=== PATIENT | male | born 1955 | race Caucasian/White ===

== ENCOUNTER 2022-01-29 00:32 | Outpatient (CLI) | payer MEDICARE, OTHER, SELFPAY ==
--- NOTE | 2022-01-29 08:45 | DI.US_ITS ---
Exam(s) US NEEDLE LOCAL OTHER WO RAD EXAM: US NEEDLE LOCAL OTHER WO RAD CLINICAL HISTORY: right thyroid nodule,E04.1,ULTRASOUND GUIDED BIOPSY. COMPARISON: No exams were available for comparison TECHNIQUE: Ultrasound was provided for Dr. Malone for guidance with performing right thyroid nodule FNA. FINDINGS: Images show a solid heterogeneous mass measuring 5.2 x 4 x 5 cm. Images show needle placement within the lesion. Please see procedure new for details. DATA REPOSITORY:
--- NOTE | 2022-01-29 14:15 | PAPNONF_PTH ---
PATIENT: Miky Forbes LOC: [facility] U#:[id number] AGE/SX: 66/M ROOM: RE01/29/[address]: Akira Malone MD : [id number] BED: DIS: 01/29/2022 SPEC #: [id number] RECD: 01/29/22 18:00 STATUS: VALERIA REGlynn #: [id number] TAMARA: 01/29/22 14:[address]: Akira Malone DEPT: [facility] Cytology RECD BY: Bethany Fajardo ENTERED: 01/29/22 18:01 SP TYPE: JURGEN PIERRE DR: Yuli Dalton Tissues: 1 - BODY FLUID CYTO-FINE NEEDLE [facility] Procedures: BODY FLUID CYTO-FINE NEEDLE [facility]IR[facility] Comments: [id number]
--- NOTE | 2022-01-29 14:59 | OPPNE_ITS ---
Procedure Note Date of procedure: 01/29/22 Procedure: Ultrasound-guided FNA, right thyroid nodule Procedure Diagnosis: Right thyroid nodule Procedure Indications: Patient with a large right-sided thyroid nodule, largely replacing his thyroid lobe. Options were explained to the patient regarding further management. He elected to undergo the above procedure. Consent was filled out and signed prior to the procedure. Procedure Description: After obtaining written consent, the patient was positioned in the supine position with his head extended. Ultrasound was used to localize the thyroid nodule on the right as well as to confirm that the left thyroid nodule did not have any nodules of concern. The patient was then prepped and draped in appropriate fashion and 1% lidocaine with 1/100,000 epinephrine was injected into the skin and subcutaneous tissues overlying the right-sided thyroid nodule. A 25-gauge needle was then passed repeatedly into the nodule, approaching the nodule in different portions of the nodule, with no obvious cellularity found by pathology. As such, after discussion with the patient, air prep slides as well as CytoLyt specimen were prepared. A sterile dressing was applied after ensuring adequate hemostasis and the patient was allowed to sit and then stand, with no alteration in his vitals and he was able to ambulate without difficulty. He is aware he should remove the bandage tonight and not replace it. He will use ibuprofen or Tylenol for discomfort. He will call if he does not hear from me with regard to pathology within 1 week. If the specimens are nondiagnostic or if the diagnosis warrants I will probably refer him to [facility] to Dr. Aguilar for consideration of thyroid lobectomy given the size of the nodule. We will cross this bridge when we get there. He had no further questions. He is comfortable with the plan.
== END 2022-01-29 00:52 ==
PROVIDERS: PCP Nurse Practitioner Family; Visit Provider Otolaryngology
DX: E04.1 Nontoxic single thyroid nodule (principal)
CPT/HCPCS: 76942; 88104

== ENCOUNTER 2023-02-28 02:58 | Outpatient (CLI) | payer MEDICARE, OTHER, SELFPAY ==
--- NOTE | 2023-02-28 06:44 | DI.US_ITS ---
Exam(s) US THYROID EXAM: US THYROID CLINICAL HISTORY: Assess stability of THYROID nodule,H/O THYROID CA AND LOBECTOMY,E04.1,Z85.8. TECHNIQUE: Ultrasound thyroid performed using standard protocol. COMPARISON: US US THYROID/NECK/HEAD from 01/02/2022 US US NEEDLE LOCAL OTHER WO RAD from 01/29/2022 FINDINGS: RIGHT THYROID LOBE: The right thyroid lobe is surgically absent. There are no masses in the right thyroid bed. The remaining isthmus appears unremarkable. LEFT THYROID LOBE: Measures 1.9 cm AP x 2.1 wide x 5.1 cm craniocaudal There is a subtle nodule in the left lobe characteristics as described below. Nodule Size: Measures 1.1 x 1.0 x 1.1 cm Composition: Solid-2 points Echogenicity: Isoechoic-1 points Shape: Not taller than wider in the transverse plane-0 points Margin: Smooth-0 points Echogenic Foci: None-0 points Total points for this nodule: 3 ACR Ti-Rads Category: 3 This TR3 nodule does not require biopsy as it measures less than 2.5 cm. There is another finding in the left lobe which has the appearance of benign cyst measuring 7 x 8 x 3 mm. LYMPH NODES: There is no significant adenopathy. IMPRESSION: 1. Right thyroid lobe is surgically absent. No mass nor adenopathy evident on the right side 2. There is a TR3 nodule in the left lobe as described above. This can be followed conservatively. Recommend repeat ultrasound in 1 year. 3. There is no significant lymphadenopathy. DATA REPOSITORY:
== END 2023-02-28 03:18 ==
LOC: DI 02:59
PROVIDERS: PCP Nurse Practitioner Family; Visit Provider Otolaryngology
DX: E04.1 Nontoxic single thyroid nodule (principal); Z85.850 Personal history of malignant neoplasm of thyroid; Z90.2 Acquired absence of lung [part of]
CPT/HCPCS: 76536

== ENCOUNTER → 2024-02-27 01:20 | Outpatient (CLI) | payer MEDICARE, OTHER, SELFPAY ==
--- NOTE | 2024-02-27 06:45 | DI.US_ITS ---
Exam(s) US THYROID EXAM: US THYROID CLINICAL HISTORY: Assess stability of remaining lobe and nodule, hx thyroid cancer, Z85.647. TECHNIQUE: Ultrasound thyroid performed using standard protocol. COMPARISON: US US THYROID from 02/28/2023 FINDINGS: ISTHMUS: 3 mm RIGHT LOBE: The patient is status post right lobectomy. LEFT LOBE: Size: 5.2 x 1.8 x 2.1 cm Echogenicity: Normal. Vascularity: Normal. Nodules: There is a 1.0 x 1.0 x 1.1 cm solid isoechoic nodule in the inferior pole. This is consiste nt with a TI rads level 3 nodule. Based on its size, no follow-up is recommended. This is unchanged in size compared to the prior examination. There is a 1.0 x 0.4 x 0.9 cm solid hypoechoic nodule wi th punctate echogenic foci. This was not present on the prior examination. This is consistent with a TI rads level 5 nodule. Due to its size, FNA is recommended. OTHER FINDINGS: None. IMPRESSION: New solid 1 cm hypoechoic nodule with punctate echogenic foci. Due to its size, FNA is recommended. DATA REPOSITORY:
== END ==
PROVIDERS: PCP Nurse Practitioner Family; Visit Provider Otolaryngology
DX: Z85.850 Personal history of malignant neoplasm of thyroid (principal); E04.1 Nontoxic single thyroid nodule
CPT/HCPCS: 76536

== ENCOUNTER 2024-08-28 00:10 | Outpatient (CLI) | payer MEDICARE, OTHER, SELFPAY ==
--- NOTE | 2024-08-28 07:59 | DI.US_ITS ---
Exam(s) US THYROID EXAM: US THYROID CLINICAL HISTORY: Assess for change Z85.850 HX THYROID CA E04.1 THYROID NODULE. TECHNIQUE: Ultrasound thyroid performed using standard protocol. COMPARISON: US US THYROID from 02/27/2024 FINDINGS: ISTHMUS: 2 mm RIGHT LOBE: The patient is status post right lobectomy. LEFT LOBE: Size: 6.2 x 2.6 x 2.6 cm Echogenicity: Normal. Vascularity: Normal. Nodules: There is a 1.1 x 0.7 x 1.2 cm mixed isoechoic nodule in the medial aspect of the left lobe. It is consistent with a TI rads level 2 nodule. No follow-up is recommended. There is a 1.0 x 0.6 x 0.9 cm mixed isoechoic nodule in the lateral aspect consistent with a TI rads level 2 nodule. No f ollow-up is recommended. There is a 1.0 x 1.1 x 1.0 cm solid hypoechoic nodule present. It is consi stent with a TI rads level 4 nodule. Due to its size, follow-up is recommended. OTHER FINDINGS: None. IMPRESSION: Stable left thyroid nodules. DATA REPOSITORY:
== END 2024-08-28 00:30 ==
LOC: DI 00:11
PROVIDERS: PCP Nurse Practitioner Family; Visit Provider Otolaryngology
DX: E04.1 Nontoxic single thyroid nodule
CPT/HCPCS: 76536

== ENCOUNTER → 2025-08-18 02:09 | Outpatient (CLI) | payer MEDICARE, OTHER, SELFPAY ==
--- NOTE | 2025-08-18 12:00 | DI.US_ITS ---
Exam(s) US THYROID EXAM: US THYROID CLINICAL HISTORY: Assess for change, NON TOXIC THRYOID NODULE, E04.1. TECHNIQUE: Ultrasound thyroid performed using standard protocol. COMPARISON: US US THYROID from 08/28/2024 FINDINGS: RIGHT THYROID LOBE: Right thyroid lobe again noted be surgically absent. There are no new abnormal a ultrasound findings in the right thyroid bed region. ISTHMUS: The remaining left-sided the isthmus appears unremarkable. LEFT THYROID LOBE: Measures 1.9 cm AP x 1.6 wide x 4.7 cm craniocaudal Three almost adjacent nodules in the left lobe are again noted. Nodule #1. This is the more superior of the nodules and measures 1.4 cm by 0.5 cm by 1.4 cm Grading of this nodule is as follows: Composition: Solid-2 points Echogenicity: Hypoechoic-2 points Shape: Wider than taller in the transverse plane-0 points Margin: Smooth-0 points Echogenic Foci: None-0 points Total points for this nodule: 4 ACR Ti-Rads Category: 4 This TR 4 level nodule can be observed as it measures less than 1.5 cm. Nodule #2. Size: Measures 1.2 x 0.6 x 1.2 cm Grading of this nodule is as follows: Composition: Mixed [id number]-5 point Echogenicity: Hypoechoic-2 points Shape: Wider than taller in the transverse plane-0 points Margin: Indistinct-0 points Echogenic Foci: Contain some punctate echogenic foci-3 points Total Points for this nodule: 6 ACR Ti-Rads Category: 4 This TR 4 level nodule can be followed as it measures less than 1.5 cm. Nodule #3 . This is the smallest nodule Size: Measures 0.7 x 0.6 x 0.7 cm Grading of this nodule is as follows: Composition: Mixed [id number]-6 point Echogenicity: Hypoechoic-2 points Shape: Wider than taller-0 points Margin: None-0 points Echogenic Foci: Total points for this nodule: 3 ACR Ti-Rads Category: 3 This TR 3 level nodule does not require biopsy LYMPH NODES: There is no significant adenopathy. IMPRESSION: 1. Relatively stable appearance of the 3 previously described left thyroid lobe nodules, none of which qualify for ultrasound-guided FNA at this time. 2. The right thyroid lobe is again noted be surgically absent and there is no abnormal tissue in the right thyroid bed. 3. There is no significant lymphadenopathy. DATA REPOSITORY:
== END ==
PROVIDERS: PCP Nurse Practitioner Family; Visit Provider Otolaryngology
DX: E04.1 Nontoxic single thyroid nodule (principal); Z85.850 Personal history of malignant neoplasm of thyroid; Z90.09 Acquired absence of other part of head and neck
CPT/HCPCS: 76536